=== PATIENT | female | born 1960 | race Caucasian/White ===

== ENCOUNTER 2020-12-31 11:15 | Inpatient (IN) | payer BC ==
[2021-01-05] MEDS ORDERED: cefOXitin Sodium/Dextrose 2 GM/50 ML BAG ONE (11:06)
[2021-01-05] MEDS ORDERED: Lidocaine 1% w/Epinephrine 1:100K 20 ML VIAL ONE (12:02)
[2021-01-05] MEDS ORDERED: Bupivacaine 0.25% HCL 30 ML VIAL ONE (12:02)
[2021-01-05] MEDS ORDERED: Lidocaine 2% Jelly 5 ML TUBE ONE (13:18)
[2021-01-05] MEDS ORDERED: Fentanyl 100 MCG/2 ML VIAL ONE ×2 (13:18→16:55)
[2021-01-05] MEDS ORDERED: Promethazine HCl 25 MG/ML VIAL IM PRN ×2 (13:19→17:02)
[2021-01-05] MEDS ORDERED: Morphine 2 MG/ML VIAL SLOW IVP PRN (13:19)
[2021-01-05] MEDS ORDERED: Ondansetron PF 4 MG/2 ML Vial IVP PRN (13:19)
[2021-01-05] MEDS ORDERED: hydrALAZINE 20 MG/ML VIAL SLOW IVP PRN (13:19)
[2021-01-05] MEDS ORDERED: Glycopyrrolate 0.2 MG/ML 5 ML SYRINGE ONE (13:38)
[2021-01-05] MEDS ORDERED: ePHEDrine Sulfate 50 MG/10 ML VIAL ONE (13:38)
[2021-01-05] MEDS ORDERED: Ondansetron PF 4 MG/2 ML Vial ONE (13:38)
[2021-01-05] MEDS ORDERED: Rocuronium Bromide 10 MG/ML (10ML VIAL) ONE (13:38)
[2021-01-05] MEDS ORDERED: Labetalol HCl 100 MG/20 ML VIAL ONE (13:38)
[2021-01-05] MEDS ORDERED: PROPOFOL 200 MG/20 ML VIAL ONE (13:38)
[2021-01-05] MEDS ORDERED: Lidocaine 1% PF 5 ML VIAL ONE (13:38)
[2021-01-05] MEDS ORDERED: Dexamethasone 20 MG/5 ML VIAL ONE (13:38)
[2021-01-05] MEDS ORDERED: ceFOXitin 1 GM VIAL ONE (15:19)
[2021-01-05] MEDS ORDERED: Promethazine HCl 25 MG/ML VIAL SLOW IVP PRN (17:02)
[2021-01-05] MEDS ORDERED: Ondansetron HCl/PF 4 MG/2 ML Vial IVP PRN (17:02)
[2021-01-05] MEDS ORDERED: D5 1/2 NS w/20 mEq KCL 1,000 ML ONE (18:28)
[2021-01-05 19:59] VITALS: TEMP 97.6
[2021-01-05] MEDS ORDERED: HYDROcodone/Acetaminophen 7.5/325 mg Tablet PO PRN (20:45)
[2021-01-05] MEDS: Ketorolac Tromethamine 30 MG/ML VIAL IVP SCH (20:47)
[2021-01-05] MEDS: Famotidine 20 MG TAB PO SCH (20:48)
[2021-01-05] MEDS: D5 1/2 NS w/20 mEq KCL 1,000 ML IV SCH ×2 (20:54→23:21)
[2021-01-05] MEDS: Famotidine/PF 20 mg/2ml Vial SLOW IVP SCH (20:59)
[2021-01-05 21:25] VITALS: BMI 26.4
[2021-01-06] MEDS: Ketorolac Tromethamine 30 MG/ML VIAL IVP SCH ×2 (00:01→06:11)
[2021-01-06 06:04] LABS: #Lymphocytes 1.2 thou/uL (1.20-3.40); #Monocytes 0.5 thou/uL (0.11-0.59); #Neutrophils 2.8 thou/uL (1.40-6.50); %Basophils 0.4 % (0.0-1.0); %Eosinophils 0.1 % (0.0-10.0); %Lymphocytes 26.9 % (21.0-51.0); %Neutrophils 61.6 % (42.0-75.0); Hemoglobin 11.4 g/dL (12.0-16.0); Mean Corpuscular HGB CONC 32.5 g/dL (32.0-36.0); Mean Corpuscular Volume 95.3 fL (78.0-98.0); Mean Platelet Volume 8.1 fL (7.4-10.4); Platelet Count 198 thou/uL (130-400); RBC Distribution Width 11.3 % (11.5-14.5); Red Blood Cell (RBC) Count 3.68 mill/uL (4.20-5.40); White Blood Cell (WBC) Count 4.5 thou/uL (4.8-10.8)
[2021-01-06] MEDS: D5 1/2 NS w/20 mEq KCL 1,000 ML IV SCH (06:07)
[2021-01-06 06:24] LABS: Anion Gap 11 mmol/L (10-20); BUN (Urea Nitrogen) 8 mg/dL (9.8-20.1); Calc. Creatinine Clearance 82 mL/min (70-130); Calcium 8.4 mg/dL (7.8-10.44); Carbon Dioxide 24 mmol/L (22-29); Chloride 106 mmol/L (98-107); Glucose 160 mg/dL (70-105); Potassium 4.3 mmol/L (3.5-5.1); Sodium 137 mmol/L (136-145)
[2021-01-06 07:37] VITALS: BP 111/74
[2021-01-06] MEDS: Famotidine 20 MG TAB PO SCH (08:07)
[2021-01-06] MEDS: Famotidine/PF 20 mg/2ml Vial SLOW IVP SCH (08:08)
[2021-01-06] MEDS ORDERED: Enoxaparin Sodium 40 MG/0.4 ML SYRINGE SC SCH (09:00)
[2021-01-06] MEDS ORDERED: HYDROcodone/Acetaminophen 7.5/325 mg Tablet PO PRN (13:20)
== END 2021-01-06 11:23 | disposition home or self-care (01) | DRG 337 ==
LOC: SURG A 01-05 09:26 → EDSTATUS 01-05 11:15 → T4-B 01-05 18:37
PROVIDERS: ADMIT Surgery; ATTEND Surgery
PROC: 0DN84ZZ Release Small Intestine, Percutaneous Endoscopic Approach (ICD-10-PCS; principal; 2021-01-05)
PROC: 0DNU4ZZ Release Omentum, Percutaneous Endoscopic Approach (ICD-10-PCS; 2021-01-05)
DX: K56.50 Intestinal adhesions [bands], unspecified as to partial versus complete obstruction (principal); I10 Essential (primary) hypertension; E78.5 Hyperlipidemia, unspecified; F90.9 Attention-deficit hyperactivity disorder, unspecified type; F41.9 Anxiety disorder, unspecified; E03.9 Hypothyroidism, unspecified; Z90.49 Acquired absence of other specified parts of digestive tract; Z90.710 Acquired absence of both cervix and uterus; Z79.899 Other long term (current) drug therapy; Z90.722 Acquired absence of ovaries, bilateral; Z82.49 Family history of ischemic heart disease and other diseases of the circulatory system; Z87.891 Personal history of nicotine dependence
CPT/HCPCS: 36415; 80048; 85025; 93005; 93010; J0694; J1100; J1885; J2405; J2704; J3010; J3480; S0020